=== PATIENT | female | born 1990 | race Caucasian/White ===

== ENCOUNTER → 2017-04-05 | Outpatient (CLI) | payer OTHER | END | disposition home or self-care (01) | LOC: C.PAPS 13:59 | PROVIDERS: ATTEND Obstetrics & Gynecology | DX: Z34.01 Encounter for supervision of normal first pregnancy, first trimester (principal) ==

== ENCOUNTER → 2017-04-05 | Outpatient (CLI) | payer OTHER ==
[2017-04-05 14:07] LABS: BASO % 0.2 %; BASO ABS # 0.02 K/uL (0-0.2); EOS % 0.2 %; EOS ABS # 0.02 K/uL (0-0.5); HEMATOCRIT 36.4 % (37-47); HEMOGLOBIN 12.6 g/dL (12.0-16.0); IG# 0.02 K/uL (0.00-0.02); LYMPH % 20.7 %; LYMPH ABS # 1.72 K/uL (1.2-3.4); MEAN CELL VOLUME 88.6 fL (80-100); MEAN CORPUSCULAR HEMOGLOBIN 30.7 pg (25-34); MEAN CORPUSCULAR HGB CONC 34.6 g/dl (32-36); MEAN PLATELET VOLUME 10.1 fL (7.4-10.4); MONO % 6.4 %; MONO ABS # 0.53 K/uL (0.11-0.59); NEUT % 72.3 %; NEUT ABS # 6.01 K/uL (1.4-6.5); PLATELET COUNT 214 K/uL (130-400); RED CELL DISTRIBUTION WIDTH CV 12.2 % (11.5-14.5); RED CELL DISTRIBUTION WIDTH SD 38.8 fL (36.4-46.3); WHITE BLOOD COUNT 8.32 K/uL (4.8-10.8)
== END | disposition home or self-care (01) ==
LOC: C.LAB1850 12:36
PROVIDERS: ATTEND Obstetrics & Gynecology
DX: Z34.01 Encounter for supervision of normal first pregnancy, first trimester (principal)

== ENCOUNTER → 2017-06-10 | Outpatient (CLI) | payer OTHER | END | disposition home or self-care (01) | LOC: C.LAB1850 12:28 | PROVIDERS: ATTEND Obstetrics & Gynecology | DX: Z34.02 Encounter for supervision of normal first pregnancy, second trimester (principal) ==

== ENCOUNTER 2019-12-06 08:38 | Inpatient (IN) ==
--- NOTE | 2019-12-06 08:50 | History & Physical Report ---
Date of Service December 06, 2019 Assessment & Plan (1) : Millie is a 29 y/o female currently at 39-1/7 WGA with an MILAGROS 12/12/19 as determined by US#1 who presented for a labor check in the setting of regular contractions at home, subsequently found to be in the active Stage I of labor upon her presentation. - Can proceed with AROM when able - Anticipate - GBS negative - Patient is not desiring epidural / analgesia to aid with delivery at this time Diet: NPO Code: Full code History of Present Illness Primary Care Provider: Izzy Baker PA-C Millie is a 29 y/o female currently at 39-1/7 WGA with an MILAGROS 12/12/19 as determined by US#1 who is here for a labor check. 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 She has had regular appointments with OB. Endorses regular contractions; reports good movement; denies fluid loss; no bloody show. Labs: (04/24/19) Blood type: O+ Antibody screen: neg H.0 Hct: 36.6 WBC: 7.1 Plt: 183 Rubella: Immune VDRL/RPR: NR Gonorrhea: Not detected Chlamydia: Not detected HIV: Negative HbSAg: Negative SARS-CoV-2 / COVID19 (11/27): Not detected GBS: negative Other screens: cff-DNA: Low risk (scanned reports - 06/28/19) CF and SMA: Not tested Allergies Allergy/AdvReac Type Severity Reaction Status Date / Time amoxicillin Allergy Hives Verified 12/05/19 13:33 Penicillins Allergy Hives Verified 12/05/19 13:33 Home Medications Home Medications Medication Instructions Recorded Confirmed Type PNV cmb#95-ferrous fumarate-FA 11/23/17 12/05/19 History [] ascorbate calcium (vitamin C) PO 02/11/19 12/05/19 History calcium carbonate-vitamin D3 PO 02/11/19 12/05/19 History lactobacillus combination no.8 PO 02/11/19 12/05/19 History omega-3 fatty acids PO 02/11/19 12/05/19 History Patient History Medical History (Updated 11/30/19 @ 14:11 by Quique Miller DO, FACS) Amenorrhea Varicella vaccination Surgical History (Updated 11/30/19 @ 13:17 by Elvira Guardado RN) History of tooth extraction wisdom teeth Family History Mother Thyroid cancer Malaria Lyme disease Hypertension Grandfather (Maternal) Myocardial infarction Grandfather (Paternal) Colorectal cancer Social History (Updated 04/17/19 @ 11:16 by Rebeca Fish) Smoking Status: Never smoker Second Hand Exposure: No; Hx Alcohol Use: No Hx Substance Use: No Preferred Language: Belarusian Communication Ability: Effective Highway Technician Required: No Beliefs That Will Affect Care: None marital status: marital status details: Ramiro Livingston (29) [phone] Current Living Situation: Spouse and Family Current Living Situation Comment: Lives with her and son. 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 No acute distress. Cardiac: Regular rate and rhythm, no murmurs/rubs/gallops. Respiratory: Clear to auscultation bilaterally a/p, no wheezes/rales/rhonchi. No increased work of breathing. Symmetrical chest rise. No respiratory distress. Pelvic: Dilation 7 cm; Effacement 100%; Station -[address] Peter External FHT and external uterine monitors used; Category I tracing; moderate FHT variability. Lower Extremities: No lower extremity edema or swelling. No deep calf pain. Sim's negative bilaterally Monitoring External Monitor Baseline: 145bpm Variability: Moderate 6-25bpm Accelerations: 15x15 Decelerations: Absent Tocodynamometer Frequency: q4m Duration: 100s Quality: Moderate Supervising Physician Co-Signing Physician Notes Resident Physician Supervision Note: I was present with Dr. Devlin during the history and exam. I discussed the case with the resident and agree with the findings and plan as documented in the note. Any exceptions or clarifications are listed here: pt seen and examined by me separately. at term, labor. desires arom, declines anesthesia. gbs neg. fhts categ 1. has plan that was reviewed. will admit, get labs, iv and then plan arom. Documented By: Ann Peter MD, FACOG Resident Activity Tracking Resident Involvement: Resident Care Provided Care Provided: Adult Hospital Medicine and OB Delivery
[2019-12-06] MEDS ORDERED: LACTATED RINGER'S 1,000 ML IV PRN (09:44)
[2019-12-06] MEDS ORDERED: OXYTOCIN 30 UNITS/500 ML BAG IV PRN ×2 (09:44→12:51)
[2019-12-06 10:02] LABS: Hematocrit (blood only) 39.6 % (37-47); Hemoglobin 13.8 g/dL (12.0-16.0); Mean Corpuscular Hemoglobin 30.9 pg (25-34); Mean Corpuscular Volume 88.8 fL (80-100); Mean Platelet Volume 10.3 fL (7.4-10.4); Platelet Count 181 K/uL (130-400); RDW Coefficient of Variation 13.4 % (11.5-14.5); RDW Standard Deviation 43.8 fL (36.4-46.3); Red Blood Count 4.46 M/uL (4.2-5.4); White Blood Count 17.41 K/uL (4.8-10.8)
[2019-12-06 10:40] LABS: Mean Corpuscular Hgb Conc 34.8 g/dL (32-36)
--- NOTE | 2019-12-06 11:41 | Labor Progress Brief Note ---
Date of Service December 06, 2019 Subjective Reason For Note: Requested By Patient feeling more pressure Assessment & Plan (1) Encounter for supervision of normal in multigravida: good cx change. fhts categ 1. anticip soon. Admission and Anticipated Discharge Date Admission Date: December 06, 2019 Physical Exam Constitutional: WD/WN, vitals as above Genitourinary: Manual OB Exam: + cervical dilation 9 cm, + cervical effacement 100% and + station + 1 OB Exam Monitor Tracing: + external FHT monitor used (140 mod variability), + external uterine monitor used (q2-3), + category I and + normal FHT variability Results & Data ([facility]) Vital Signs (Past 12 Hours) Vital Signs Temp Pulse Resp BP 12/06/19 10:32 98.4 F 101 H 20 128/69 12/06/19 08:57 98.1 F 20 12/06/19 08:52 80 135/80 Coding Level of Care Code None Diagnoses Encounter for supervision of normal in multigravida Z34.80
[2019-12-06] MEDS ORDERED: ACETAMINOPHEN 325 MG TAB PO PRN (12:35)
[2019-12-06] MEDS ORDERED: OXYCODONE/ACETAMINOPHEN 5mg/325mg TAB PO PRN (12:35)
--- NOTE | 2019-12-06 12:42 | Delivery Summary ---
Vaginal Delivery Summary Date of Service December 06, 2019 The patient dilated to complete and pushed to deliver a viable female Apgars 9 and 9 via over 2nd degree perineal laceration. Mouth and nose bulb suctioned at perineum. Shoulders and body delivered with ease. Infant was vigorous and crying at . Cord clamped at 30 seconds of life and infant to maternal abdomen where the cord was then doubly clamped and cut. Placenta delivered spontaneously and intact, three-vessel cord. Hemostasis achieved with dilute pitocin and uterine massage. Laceration repaired in routine fashion after 1% local lidocaine anesthesia with 3-0 vicryl. Cervix and sulci intact. EBL 300 cc. Mother and baby stable recovery. [facility] [place] Vaginal Delivery Charge Vaginal Delivery Codes: 93210 global code for the antepartum, delivery, and post-
[2019-12-06] MEDS ORDERED: OXYTOCIN 20 UNITS in LACTATED RINGER'S 1,000 ML IV SCH (12:45)
[2019-12-06] MEDS ORDERED: HYDROCORTISONE ACETATE 25 MG SUPP PR PRN (12:51)
[2019-12-06] MEDS ORDERED: DIPHTHERIA/TETANUS/PERTUSSIS 0.5 ML SYR/VIAL IM ONE (12:51)
[2019-12-06] MEDS ORDERED: SUPERCREAM 0.870% 15 GM JAR EXT PRN (12:51)
[2019-12-06] MEDS: BENZOCAINE 20% AER SPR 82.5 GM CAN EXT PRN (15:00)
--- NOTE | 2019-12-06 20:33 | Medical Student Report ---
Date of Service December 06, 2019 Pt age 29 GBS-. Spontaneous vaginal delivery of a 3.238kg viable female 9 and 9 with bulb suction. 3 vessel umbilical cord was clamped at 30 seconds and baby was placed on mothers chest. Umbilical blood was sent to lab. Pt sustain 2nd degree lacerations and received repair with 3-0 vicryl after administering local Lidocaine. Placenta was delivered intact. Estimated blood loss was 300 cc, per Dr. Peter's estimation. Mother and are stable. Delivery Note [place] Information Weight: 3.238 kg Length (inches): 5 ft 3 in Sex: F Race: White Mother's Information : 2
[2019-12-06] MEDS: DOCUSATE SODIUM 100 MG CAP PO SCH (20:53)
--- NOTE | 2019-12-07 07:28 | Obstetrical Progress Note ---
Date of Service <Brian Devlin MD - Last Filed: 12/07/19 07:28> December 07, 2019 Assessment & Plan <Brian Devlin MD - Last Filed: 12/07/19 07:28> (1) Spontaneous vaginal delivery: Millie is a 29 y/o female who is now PPD #1 following at 39 weeks. - Feels well today. Eating well, voiding well, ambulating well. - Pain well controlled with ibuprofen 600mg Q4H PRN. - Routine care -- OOB, ambulation, diet progression as tolerated today - After discharge will have 6 week followup with [place] - Anticipate d/c today - pending pediatrics Subjective <Brian Devlin MD - Last Filed: 12/07/19 07:28> Millie is a 29 y/o female who is now PPD #1 following at 39 weeks. Reports feeling well overall this morning. Endorses intermittent and significant cramping last night that subsequently subsided - she is trying to avoid use of analgesics at this time. Voiding without difficulty. Tolerating meals overnight and able to ambulate some. Endorses passing gas. Some persistent lochia with some improvement this morning. Breast feeding without difficulty. Review of Systems Denies fever, chills, sweats Denies shortness of breath, difficulty breathing, chest pain, palpitations, chest pressure. Denies breast pain. Denies dysuria. Denies headache or changes in vision. Physical Exam <Brian Devlin MD - Last Filed: 12/07/19 07:28> General: Alert, oriented. No acute distress. Cardiac: Regular rate and rhythm, no murmurs/rubs/gallops. Respiratory: Clear to auscultation bilaterally a/p, no wheezes/rales/rhonchi. No increased work of breathing. Symmetrical chest rise. No respiratory distress. Abdomen: Soft, nontender, nondistended. Bowel sounds present. Uterus: Uterine fundus firm, palpable 2 cm below umbilicus. Lower Extremities: No lower extremity edema or swelling. No deep calf pain. Sim's negative bilaterally. Results & Data ([facility]) <Brian Devlin MD - Last Filed: 12/07/19 07:28> Vital Signs (Past 12 Hours) Vital Signs Temp Pulse Resp BP 10/08/20 05:00 36.6 C 88 18 135/84 12/06/19 23:15 36.8 C 84 18 125/79 12/06/19 20:09 36.7 C 81 18 118/71 <Ann Peter MD, FACOG - Last Filed: 12/07/19 07:54> Co-Signing Physician Notes Resident Physician Supervision Note: I was present with Dr. Devlin during the history and exam. I discussed the case with the resident and agree with the findings and plan as documented in the note. Any exceptions or clarifications are listed here: stable routine care. wants to go home. f/u 6wks pp check. instructions reviewed. Documented By: Ann Peter MD, FACOG Resident Activity Tracking <Brian Devlin MD - Last Filed: 12/07/19 07:28> Resident Involvement: Resident Care Provided Care Provided: Adult Hospital Medicine and OB Delivery
[2019-12-07] MEDS ORDERED: PRENATAL VITAMIN 1 TAB PO SCH (08:00)
[2019-12-07] MEDS: IBUPROFEN 600 MG TAB PO PRN ×2 (08:22→12:35)
[2019-12-07] MEDS: DOCUSATE SODIUM 100 MG CAP PO SCH (08:22)
[2019-12-07] MEDS: BENZOCAINE 20% AER SPR 82.5 GM CAN EXT PRN (08:23)
== END 2019-12-07 16:15 | disposition home or self-care (01) | DRG 807 ==
LOC: OPB 08:38 → 4S1 08:41 → 4S2 15:25

== ENCOUNTER 2022-01-26 05:36 | Inpatient (IN) ==
--- NOTE | 2022-01-19 08:44 | Anesthesiology Consultation ---
Date of Service January 19, 2022 Assessment & Plan (1) Encounter for pre-operative examination: COVID screening: Per assessment on 01/16: No known COVID-19 positive contacts or current COVID-19 related symptoms. Travel screen negative. Chart Review Chart Review: dividend deposit entry clerk initiated History Surgery Operation Date: 01/26/22 09:10 Proposed Procedures p Section in LD (Delivery of Baby through Abdominal Incision) - Dai Thurman MD, FACOG Height/Weight Height: 5 ft 2 in Weight: 66.678 kg Allergies Allergy/AdvReac Type Severity Reaction Status Date / Time amoxicillin Allergy Hives Verified 01/16/22 15:08 Penicillins Allergy Hives Verified 01/16/22 15:08 Medications Home Medications Medication Instructions Recorded Confirmed Last Taken vit no.95-ferrous 1 tab PO QAM 11/23/17 01/16/22 11/22/17 09:00 fumarate 28 mg-folic acid 800 mcg tablet () ascorbate calcium (vitamin C) 1 dose PO QAM 02/11/19 01/16/22 12/05/19 calcium carbonate-vitamin D3 1 dose PO QAM 02/11/19 01/16/22 Unknown lactobacillus combination no.8 1 dose PO QAM 02/11/19 01/16/22 Unknown [Adult Probiotic] omega-3 fatty acids [Fish Oil 1 dose PO QAM 02/11/19 01/16/22 Unknown Concentrate] zinc gluconate 1 dose PO QAM 06/16/21 01/16/22 Unknown breast pump #1 ea 01/05/22 01/16/22 Unknown ascorbic acid (vitamin C) 500 mg 500 mg PO QAM 01/16/22 01/16/22 Unknown tablet (Vitamin C) ferrous sulfate 325 mg (65 mg 325 mg PO DAILY 01/16/22 01/16/22 Unknown iron) tablet (iron) Past Medical History Medical History Amenorrhea History of COVID-19 10/2020 > not hospitalized Inguinal hernia Past Family History Family History Mother Thyroid cancer Malaria Lyme disease Hypertension Grandfather (Maternal) Myocardial infarction Grandfather (Paternal) Colorectal cancer Past Surgical History Surgical History History of tooth extraction wisdom teeth Social History Smoking Status: Never smoker Do You Dip or Chew Tobacco: No Hx Alcohol Use: No Hx Substance Use: No substance use type: does not use
--- NOTE | 2022-01-20 20:40 | History & Physical Report ---
Date of Service January 20, 2022 Assessment & Plan (1) Breech presentation of fetus: Plan: Multiparous female with 2 prior 's now with persistent breech presentation declines ECV procedure and it's risks reviewed with patient and all questions were answered to her satisfaction. we will do a bedside ultrasound prior to the to confirm that the baby is still in breech presentation. History of Present Illness Primary Care Provider: Izzy Dougherty PA-C Patient is a 31 yo female EDC 01/30/22 who presents for primary section because of persistent breech presentation. she has declined external version attempt . she has had 2 prior vaginal deliveries. otherwise uncomplicated. GBS- negative. Allergies Allergy/AdvReac Type Severity Reaction Status Date / Time amoxicillin Allergy Hives Verified 01/20/22 10:49 Penicillins Allergy Hives Verified 01/20/22 10:49 Home Medications Medication Instructions Recorded Confirmed Type vit no.95-ferrous 1 tab PO QAM 11/23/17 01/20/22 History fumarate 28 mg-folic acid 800 mcg tablet () ascorbate calcium (vitamin C) 1 dose PO QAM 02/11/19 01/20/22 History calcium carbonate-vitamin D3 1 dose PO QAM 02/11/19 01/20/22 History lactobacillus combination no.8 1 dose PO QAM 02/11/19 01/20/22 History [Adult Probiotic] omega-3 fatty acids [Fish Oil 1 dose PO QAM 02/11/19 01/20/22 History Concentrate] zinc gluconate 1 dose PO QAM 06/16/21 01/20/22 History breast pump #1 ea 01/05/22 01/20/22 Rx ascorbic acid (vitamin C) 500 mg 500 mg PO QAM 01/16/22 01/20/22 History tablet (Vitamin C) ferrous sulfate 325 mg (65 mg 325 mg PO DAILY 01/16/22 01/20/22 History iron) tablet (iron) Patient History Medical History Amenorrhea History of COVID-19 10/2020 > not hospitalized Inguinal hernia Surgical History History of tooth extraction wisdom teeth Family History Mother Thyroid cancer Malaria Lyme disease Hypertension Grandfather (Maternal) Myocardial infarction Grandfather (Paternal) Colorectal cancer Social History (Updated 06/16/21 @ 10:24 by Rebeca Fish) Smoking Status: Never smoker Second Hand Exposure: No; Hx Alcohol Use: No Hx Substance Use: No Preferred Language: Czech Communication Ability: Effective Pediatrician Required: No Beliefs That Will Affect Care: None marital status: marital status details: Ramiro Livingston (32) [phone] Current Living Situation: Family Current Living Situation Comment: Lives with her , 2 children, no pets current occupational status: employed 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
[~2022-01-26 05:36] MED LIST: ALLERGY Noted to ORDERED Medication SCH
[2022-01-26] MEDS ORDERED: LACTATED RINGER'S 1,000 ML IV SCH (06:00)
[2022-01-26] MEDS ORDERED: CITRIC ACID/SODIUM CITRATE 15 ML UDC PO SCH (06:00)
[2022-01-26 06:18] LABS: Basophils # (auto) 0.03 K/uL (0-0.2); Basophils % (auto) 0.5 %; Eosinophils # (auto) 0.02 K/uL (0-0.50); Eosinophils % (auto) 0.3 %; Hematocrit (blood only) 36.2 % (34.1-44.9); Hemoglobin 12.6 g/dl (12.0-16.0); Immature Granulocytes # (auto) 0.04 K/uL (0.00-0.02); Immature Granulocytes % (auto) 0.6 %; Lymphocytes # (auto) 1.63 K/uL (1.2-3.4); Lymphocytes % (auto) 25.5 %; Mean Corpuscular Hgb Conc 34.8 g/dL (32.0-36.0); Mean Corpuscular Volume 88.9 fL (80.0-100.0); Mean Platelet Volume 9.8 fL (9.4-12.3); Monocytes # (auto) 0.38 K/uL (0.24-0.82); Monocytes % (auto) 5.9 %; Neutrophils # (auto) 4.29 K/uL (1.4-6.5); Neutrophils % (auto) 67.2 %; Platelet Count 196 K/uL (130-400); RDW Coefficient of Variation 13.2 % (11.5-14.5); RDW Standard Deviation 42.7 fL (36.4-46.3); Red Blood Count 4.07 M/uL (3.93-5.22); White Blood Count 6.39 K/ul (4.8-10.8)
[2022-01-26] MEDS ORDERED: fentaNYL citrate 100 MCG/2 ML VIAL ONE (06:49)
[2022-01-26] MEDS ORDERED: OXYTOCIN 10 UNITS/ML 10ML VIAL ONE (06:49)
[2022-01-26] MEDS ORDERED: MoRPHine SULFATE PF 1 MG/ML 10 ML AMP/VIAL ONE (06:50)
[2022-01-26] MEDS ORDERED: MoRPHine SULFATE PF 1 MG/ML 10 ML AMP/VIAL INT SPINAL ONE (07:04)
[2022-01-26] MEDS ORDERED: NALOXONE HCL 0.4 MG/1 ML VIAL/CARP IV PRN (07:04)
[2022-01-26] MEDS ORDERED: KETOROLAC 30 MG/ML VIAL IV PRN (07:04)
[2022-01-26] MEDS ORDERED: NALOXONE HCL 1 MG in SODIUM CHLORIDE 0.9% 1000ML 1,000 ML IV PRN (07:04)
[2022-01-26] MEDS ORDERED: NALOXONE HCL 0.08 MG in SYRINGE 1.8 ML IV PRN (07:04)
[2022-01-26] MEDS ORDERED: LACTATED RINGER'S 500 ML IV PRN (07:04)
[2022-01-26] MEDS ORDERED: HYDROmorphone INJ 0.5 MG/0.5 ML SYR IV PRN (07:04)
[2022-01-26] MEDS ORDERED: NALBUPHINE HCL INJ 10 MG/ML AMP IV PRN (07:04)
[2022-01-26] MEDS ORDERED: ONDANSETRON INJ 2 MG/ML 2 ML VIAL IV PRN (07:04)
[2022-01-26] MEDS ORDERED: ePHEDrine sulfate 50 MG/ML AMP IV PRN (07:04)
[2022-01-26] MEDS ORDERED: diphenhydrAMINE 50 MG/ML VIAL IV PRN (07:04)
[2022-01-26] MEDS ORDERED: SODIUM CHLORIDE 0.9% 1000ML 1,000 ML IV SCH (07:15)
[2022-01-26] MEDS ORDERED: DC INTRASPINAL MORPHINE SCH (07:15)
[2022-01-26] MEDS ORDERED: NO NARCOTICS OR SEDATIVES SCH (07:15)
--- NOTE | 2022-01-26 07:39 | History & Physical Bridge Note ---
Date of Service January 26, 2022 History & Physical Bridge Note I have examined the patient, reviewed the History & Physical and in the interval since the performance of the History & Physical I have noted the following changes of clinical significance: no changes noted
[2022-01-26] MEDS ORDERED: CLINDAMYCIN/D5W 900 MG/50 ML BAG IV ONE (07:45)
[2022-01-26] MEDS ORDERED: PHENYLEPHRINE 100MCG/ML 5ML SYR ONE (08:07)
[2022-01-26] MEDS ORDERED: ePHEDrine sulfate 50 MG/ML SYR ONE (08:07)
--- NOTE | 2022-01-26 08:52 | Post Operative Brief Note ---
PG Immediate Post Op with CF Date of Surgery January 26, 2022 Pre & Post Diagnosis Operation Date: 01/26/22 07:30 Pre-Op Diagnosis: Breech presentation of fetus. Post-Op Diagnosis: Breech presentation of fetus. I identified the patient and participated in the time-out.: Yes Procedure Operation Date: 01/26/22 07:30 Actual Procedures p Section Delivery of live Female child at 0815. (Bilateral) - Dai Thurman MD, FACOG Surgeon Dai Thurman MD, FACOG Ruby On Rails Software Developer Violetta Vizcarra MD Estimated Blood Loss 500 Findings Consistent with Post-Op Diagnosis gravind uterus - normal tubes & ovaries Specimens Specimen Description: A. Placenta B. Cord Blood Drains Hernandez Catheter (Inserted after spinal anesthesia, draining clear yellow urine) Anesthesia Type Spinal Complications none Disposition Accompanied Patient To Recovery: Yes
--- NOTE | 2022-01-26 09:26 | Anesthesiology Progress Note ---
Date of Service January 26, 2022 Anesthesia Post Procedure Vital Signs Vital Signs: Temp Pulse Resp BP Pulse Ox 01/26/22 09:21 69 99 01/26/22 09:18 75 111/75 01/26/22 09:16 90 100 01/26/22 09:11 70 100 01/26/22 09:08 69 106/82 01/26/22 09:06 70 98 01/26/22 09:01 66 100 01/26/22 08:57 65 111/73 01/26/22 07:00 20 01/26/22 07:00 36.8 C 20 01/26/22 07:05 36.8 C 80 18 125/68 01/26/22 06:10 36.8 C 84 18 129/73 01/26/22 06:04 36.8 C 18 Transfer of Care Handoff Completed per policy Notes Mental Status: alert / awake / arousable and participated in evaluation Patient Amnestic to Procedure: Yes Nausea / Vomiting: adequately controlled Pain: adequately controlled Airway Patency, RR, SpO2: stable & adequate BP & HR: stable & adequate Hydration State: stable & adequate Anesthetic Complications: no major complications apparent and Pt Satisfied with anesthetic care
[2022-01-26] MEDS ORDERED: SENNA 8.6 MG TAB PO PRN (10:09)
[2022-01-26] MEDS ORDERED: HYDROCORTISONE ACETATE 25 MG SUPP PR PRN (10:09)
[2022-01-26] MEDS ORDERED: DIPHTHERIA/TETANUS/PERTUSSIS 0.5 ML SYR/VIAL IM ONE (10:09)
[2022-01-26] MEDS ORDERED: MAGNESIUM HYDROXIDE SUSP 30 ML UDC PO PRN (10:09)
[2022-01-26] MEDS ORDERED: BENZOCAINE 20% AER SPR 82.5 GM CAN EXT PRN (10:09)
[2022-01-26] MEDS: OXYTOCIN 20 UNITS in LACTATED RINGER'S 1,000 ML IV SCH ×2 (10:28→18:27)
--- NOTE | 2022-01-26 11:59 | Operative Report ---
PG Post Operative Report Pre & Post Diagnosis Operation Date: 01/26/22 07:30 Pre-Op Diagnosis: Breech presentation of fetus. Post-Op Diagnosis: Breech presentation of fetus. I identified the patient and participated in the time-out.: Yes Procedure Operation Date: 01/26/22 07:30 Actual Procedures p Section Delivery of live Female child at 0815. (Bilateral) - Dai Thurman MD, FACOG Surgeon Dai Thurman MD, FACOG Termination Clerk Violetta Vizcarra MD Estimated Blood Loss 500 Findings Consistent with Post-Op Diagnosis Specimens Placenta to hold Drains Hernandez catheter to straight drainage clear urine at the end of the case Anesthesia Type Spinal Complications none Disposition Accompanied Patient To Recovery: Yes Indications Patient is a 31-year-old 3 para 2-0-0-2 female EDC of 01/30/2022 who presents for primary section because of persistent breech presentation. She was offered external cephalic version attempt and she declines. Procedure and its risks were discussed with the patient and all of her questions were answered to her satisfaction. Description of Procedure After the patient received adequate subarachnoid block she was prepped and draped in usual sterile fashion. A low transverse skin incision was made the scalpel and carried to the fascia with the same scalpel. The fascial incision was then extended bluntly in a transverse fashion. The edges were then grasped with Alicia clamps and the underlying rectus muscles bluntly sharply dissected off of the overlying fascia. The rectus muscles were then divided along the midline and the peritoneum elevated and entered sharply with Metzenbaum scissors. The bladder blade was then placed in the peritoneal cavity and the bladder was then taken off of the anterior surface of the uterus with Metzenbaum scissors and placed behind the bladder blade. The lower uterine segment was then entered with a scalpel and extended transversely membranes were ruptured for clear fluid. The female infant was delivered from the jo breech presentation with moderate fundal pressure. Upon delivery, the infant was vigorous crying and moving all 4 limbs. After the cord was clamped and cut, the was handed off to Dr. Martinez who was attendance as news video editor. The placenta was then expressed intact with a three-vessel cord. The uterus was exteriorized and covered with a clean lap sponge. The uterine cavity was swept for some retained membranes. Uterus was then closed in 2 running layers with 0 Monocryl in an imbricating fashion. Bleeding on the left side of the incision was secured with several [id number] stitches of 0 Monocryl. At this point hemostasis was noted to be excellent. The posterior cul-de-sac was suctioned for a very small amount of bloody fluid. The uterine incision was examined once more continue to have excellent hemostasis. The uterus was then placed gently back in the abdominal cavity and the incision was examined once more and continue to have excellent hemostasis. The gutters were explored and found to be free of any clot or fluid. The rectus muscle were then brought together on the midline of individual stitches of 0 Monocryl. The fascia was closed in a running fashion with 0 Vicryl. After irrigating the adipose layer, the skin edges were reapproximated with a subcuticular stitch of 3-0 Vicryl. Mother and were doing well after delivery. Urine was clear at the end of the case. I attest to the content of the Intraoperative Record and any orders documented therein. Any exceptions are noted below.
[2022-01-26] MEDS: SIMETHICONE 80 MG CHEW PO SCH ×3 (14:07→21:19)
[2022-01-26] MEDS: DOCUSATE SODIUM 100 MG CAP PO SCH (21:19)
[2022-01-27] MEDS ORDERED: diphenhydrAMINE Capsule 25 MG CAP PO PRN (01:04)
[2022-01-27] MEDS ORDERED: diphenhydrAMINE 50 MG/ML VIAL IV PRN (01:04)
[2022-01-27] MEDS ORDERED: ONDANSETRON INJ 2 MG/ML 2 ML VIAL IV PRN (01:04)
[2022-01-27] MEDS ORDERED: oxyCODONE/ACETAMINOPHEN 5mg/325mg TAB PO PRN ×2 (01:04→07:42)
[2022-01-27] MEDS ORDERED: PROMETHAZINE HCL 25 MG in SODIUM CHLORIDE 0.9% 50 ML IV PRN (01:04)
[2022-01-27] MEDS ORDERED: KETOROLAC 30 MG/ML VIAL IV PRN (01:04)
[2022-01-27] MEDS: IBUPROFEN 600 MG TAB PO PRN ×5 (01:18→21:25)
[2022-01-27] MEDS ORDERED: ACETAMINOPHEN 500 MG TAB ONE (01:50)
[2022-01-27] MEDS: ACETAMINOPHEN 500 MG TAB PO PRN ×4 (06:37→21:26)
--- NOTE | 2022-01-27 06:55 | Obstetrical Progress Note ---
Date of Service <Dayo Ellis - Last Filed: 01/27/22 07:50> January 27, 2022 Assessment & Plan <Dayo Ellis DO - Last Filed: 01/27/22 07:50> (1) S/P section: - Feels well today. Eating well, voiding well, ambulating well. - Pain well controlled with ibuprofen 600mg Q4H PRN and Tylenol 500mg Q4H - Routine care -- OOB, ambulation, diet progression as tolerated - After discharge will have 6 week follow-up with Dr. Sarabia. <Dai Thurman MD, FACOG - Last Filed: 01/27/22 08:06> (1) S/P section: Subjective <Dayo Ellis - Last Filed: 01/27/22 07:50> Ambulation: ambulating normally Voiding: no voiding problems Passing Gas:: No Diet Tolerance:: clear liquids Lochia:: Small Feeding Type:: breast feeding Current Pain Level(1-10): 2 Patient is a 31 y/o female who is POD #1 following delivery at 39 weeks. She reports feeling well overall this morning. Mild abdominal cramping & 4/10 pain well managed on analgesics. Voiding well. Tolerating meals overnight and able to ambulate some. Has not pass gas or had a normal bowel movement. Has some persistent lochia with some improvement this morning. Currently breast feeding. Review of Systems Denies fever, chills, sweats Denies shortness of breath, difficulty breathing, chest pain, palpitations, chest pressure. Denies breast pain. Denies dysuria. Denies headache or changes in vision. Physical Exam <Dayo Ellis - Last Filed: 01/27/22 07:50> General: Alert, oriented. No acute distress. Cardiac: Regular rate and rhythm, no murmurs/rubs/gallops. Respiratory: Clear to auscultation bilaterally a/p, no wheezes/rales/rhonchi. No increased work of breathing. Symmetrical chest rise. No respiratory distress. Abdomen: Soft, nontender, nondistended. Bowel sounds present. Uterus: Uterine fundus firm, palpable 3 cm below umbilicus. Lower Extremities: No lower extremity edema or swelling. No deep calf pain. Sim's negative bilaterally. Results & Data ([facility]) <Dayo Ellis DO - Last Filed: 01/27/22 07:50> Vital Signs (Past 12 Hours) Vital Signs Temp Pulse Resp BP Pulse Ox O2 Del Method 01/27/22 04:10 36.9 C 61 16 106/66 97 Room Air 01/27/22 01:30 37.0 C 69 16 100/60 100 Room Air 01/27/22 01:30 16 98 01/27/22 00:15 16 98 01/26/22 23:15 18 100 01/26/22 22:20 16 99 01/26/22 21:15 16 98 01/26/22 20:15 15 98 01/26/22 19:15 16 100 01/26/22 19:45 36.7 C 59 L 16 100/60 100 Room Air <Dai Thurman MD, FACOG - Last Filed: 01/27/22 08:06> Co-Signing Physician Notes Resident Physician Supervision Note: I interviewed and examined the patient. Discussed with Dr. Ellis and agree with findings and plan as documented in the note. Any exceptions or clarifications are listed here:Incision with mild ecchymosis inferiorly but ry and intact] Documented By: Dai Thurman MD, FACOG Resident Activity Tracking <Dayo Ellis DO - Last Filed: 01/27/22 07:50> Resident Involvement: Resident Care Provided Care Provided: OB Delivery
[2022-01-27 07:09] LABS: Basophils # (auto) 0.03 K/uL (0-0.2); Basophils % (auto) 0.3 %; Eosinophils # (auto) 0.05 K/uL (0-0.50); Eosinophils % (auto) 0.5 %; Hematocrit (blood only) 33.5 % (34.1-44.9); Hemoglobin 11.7 g/dl (12.0-16.0); Immature Granulocytes # (auto) 0.02 K/uL (0.00-0.02); Immature Granulocytes % (auto) 0.2 %; Lymphocytes # (auto) 0.92 K/uL (1.2-3.4); Lymphocytes % (auto) 9.9 %; Mean Corpuscular Hgb Conc 34.9 g/dL (32.0-36.0); Mean Corpuscular Volume 88.6 fL (80.0-100.0); Mean Platelet Volume 9.8 fL (9.4-12.3); Monocytes # (auto) 0.36 K/uL (0.24-0.82); Monocytes % (auto) 3.9 %; Neutrophils # (auto) 7.89 K/uL (1.4-6.5); Neutrophils % (auto) 85.2 %; Platelet Count 160 K/uL (130-400); RDW Coefficient of Variation 13.2 % (11.5-14.5); RDW Standard Deviation 42.8 fL (36.4-46.3); Red Blood Count 3.78 M/uL (3.93-5.22); White Blood Count 9.27 K/ul (4.8-10.8)
[2022-01-27] MEDS: DOCUSATE SODIUM 100 MG CAP PO SCH ×2 (09:16→21:26)
[2022-01-27] MEDS: PRENATAL VITAMIN 1 TAB PO SCH (09:17)
[2022-01-27] MEDS: FERROUS SULFATE 325 MG TAB PO SCH (09:17)
[2022-01-27] MEDS: SIMETHICONE 80 MG CHEW PO SCH ×4 (09:17→21:25)
[2022-01-27] MEDS ORDERED: bisacodyL 5 MG TABEC PO SCH (20:00)
[2022-01-28] MEDS: IBUPROFEN 600 MG TAB PO PRN ×3 (02:16→11:11)
[2022-01-28] MEDS: ACETAMINOPHEN 500 MG TAB PO PRN ×2 (02:16→06:28)
--- NOTE | 2022-01-28 07:15 | Obstetrical Progress Note ---
Date of Service <Dayo Ellis - Last Filed: 01/28/22 07:59> January 28, 2022 Assessment & Plan <Dayo Ellis DO - Last Filed: 01/28/22 07:59> (1) S/P section: - Feels well today. Eating well, voiding well, ambulating well. - Pain well controlled with ibuprofen 600mg Q4H PRN and Tylenol 500mg Q4H - Routine care -- OOB, ambulation, diet progression as tolerated - After discharge will have 6 week follow-up with Dr. Sarabia. - Will be D/C today. <Ken Anderson MD - Last Filed: 01/29/22 14:43> (1) S/P section: Subjective <Dayo Ellis - Last Filed: 01/28/22 07:59> Ambulation: ambulating normally Voiding: no voiding problems Passing Gas:: Yes Diet Tolerance:: regular diet Lochia:: Small Feeding Type:: breast feeding Current Pain Level(1-10): 2 Patient is a 31 y/o female who is POD #2 following delivery at 39 weeks. She reports feeling well overall this morning. Mild abdominal cramping & 2/10 pain well managed on analgesics. Voiding well. Tolerating meals overnight and able to ambulate some. Has pass gas has not had a bowel movement. Has some persistent lochia with some improvement this morning. Currently breast feeding. Review of Systems Denies fever, chills, sweats Denies shortness of breath, difficulty breathing, chest pain, palpitations, chest pressure. Denies breast pain. Denies dysuria. Denies headache or changes in vision. Physical Exam <Dayo Ellis - Last Filed: 01/28/22 07:59> General: Alert, oriented. No acute distress. Cardiac: Regular rate and rhythm, no murmurs/rubs/gallops. Respiratory: Clear to auscultation bilaterally a/p, no wheezes/rales/rhonchi. No increased work of breathing. Symmetrical chest rise. No respiratory distress. Abdomen: Soft, nontender, nondistended. Bowel sounds present. Uterus: Uterine fundus firm, palpable 3 cm below umbilicus. Lower Extremities: No lower extremity edema or swelling. No deep calf pain. Sim's negative bilaterally. Results & Data ([facility]) <Dayo Ellis DO - Last Filed: 01/28/22 07:59> Vital Signs (Past 12 Hours) Vital Signs Temp Pulse Resp BP Pulse Ox O2 Del Method 01/27/22 23:40 37.0 C 86 16 98/62 L 96 Room Air 01/27/22 19:20 36.9 C 69 16 111/73 98 Room Air <Ken Anderson MD - Last Filed: 01/29/22 14:43> Co-Signing Physician Notes Patient seen and evaluated with resident and agree with the findings and plan. Stable for discharge. Resident Activity Tracking <Dayo Ellis DO - Last Filed: 01/28/22 07:59> Resident Involvement: Resident Care Provided Care Provided: OB Delivery
[2022-01-28 07:35] LABS: Hematocrit (blood only) 32.5 % (34.1-44.9); Hemoglobin 11.2 g/dl (12.0-16.0)
[2022-01-28] MEDS ORDERED: bisacodyL 10 MG SUPP PR PRN (08:44)
[2022-01-28] MEDS: PRENATAL VITAMIN 1 TAB PO SCH (09:11)
[2022-01-28] MEDS: SIMETHICONE 80 MG CHEW PO SCH ×2 (09:12→13:09)
[2022-01-28] MEDS: FERROUS SULFATE 325 MG TAB PO SCH (09:12)
[2022-01-28] MEDS: DOCUSATE SODIUM 100 MG CAP PO SCH (09:12)
[2022-01-28] MEDS ORDERED: MEASLES, MUMPS & RUBELLA VIRUS VIAL SQ ONE (10:06)
--- NOTE | 2022-01-30 09:32 | Discharge Summary (DS) ---
DATE OF ADMISSION: 01/26/2022. DATE OF DISCHARGE: 01/28/2022. PRINCIPAL DIAGNOSIS: Intrauterine at term, with persistent breech presentation. PRINCIPAL PROCEDURE: Primary low transverse section. HISTORY: The patient is a 31-year-old 3, para 2-0-0-2, female, EDC of 01/30/2022, who presen for primary section because of persistent breech presentation. She underwent the cesarea n section without any complications. She had an uncomplicated postop course. She remained afebrile throughout her hospital stay. She was eating regular diet on her first postop day, ambulating and vo iding without difficulty on her first postop day. Hemoglobin on admission was 12.6, hematocrit of 36 .2. First postop day hemoglobin 11.7, hematocrit of 33.5. Second postop day, hemoglobin of 11.2, he matocrit of 32.5. She was sent home with prescription for Motrin 600 mg p.o. q.6 hours p.r.n. pain. She is also going to take Tylenol 500 mg q.4 hours p.r.n. pain. She is to call for a temperature of 101 degrees or higher, heavy vaginal bleeding, burning with urination, increased redness, drainage o r pain in her incision, calf tenderness, shortness of breath or any other concerns. She will see her e in the office in 6 weeks for and postop visit. Job ID: [id number]
== END 2022-01-28 13:55 | disposition home or self-care (01) | DRG 788 ==
LOC: 4S1 05:36 → EDSTATUS 09:10 → 4E2 12:06